=== PATIENT | female | born 1965 | race Caucasian/White ===

== ENCOUNTER 2024-04-20 08:02 | Emergency (ER) | payer OTHER, SELFPAY ==
[2024-04-20 08:06] VITALS: BP 197/105
[2024-04-20] MEDS: TORADOL 15 MG IV (08:31)
[2024-04-20] MEDS: DILAUDID 0.5 MG IV (08:31)
[2024-04-20] MEDS: ZOFRAN 4 MG IV ×2 (08:31→08:57)
[2024-04-20] MEDS: NSS 500 IV (08:38)
[2024-04-20 08:42] VITALS: BMI 36.7
--- NOTE | 2024-04-20 08:42 | ED.GENMED ---
History of Present Illness
General
Chief Complaint: Back Pain
Source: patient
Exam Limitations: none
Time Seen by Provider: 04/20/24 08:19
Nursing documentation reviewed up to this point in time: agreed with
History of Present Illness
History of Present Illness:
Patient presents to secondary to intermittent, but worsening left lower back pain rating to her stomach over the past 2 weeks. This morning, patient has had vomiting episodes secondary to severe pain. Denies fever or chills. Denies trauma.
Denies loss of sensation or weakness. Denies difficulty with ambulation. Denies difficulty with urination. Patient has had history of kidney stones, but is unsure if she has passed her previous kidney stones or her symptoms are similar to what
she had experienced in the past. Denies recent illness.
Past History
Past History
ED Past Medical History: Asthma, GERD (gastritis/hiatel hernia) and Other (Kidney stones)
ED Past Surgical History: Cholecystectomy and Gynecological
Social History
Tobacco: Non-smoker
Alcohol: Occasional
Personal: Single
Living: with family
Review of Systems
Review of Systems
Allergies reviewed?: Yes
All Other Systems: ROS reviewed and negative except as documented in HPI and ROS
Constitutional: Reports no symptoms; Denies fever
Cardiac: Reports no symptoms
ABD/GI: Reports abdominal pain, nausea and vomiting
: Reports flank pain; Denies dysuria, frequency or difficulty voiding
Musculoskeletal: Reports back pain
Skin: Reports no symptoms
Neurological: Reports no symptoms
Phy Exam
Physical Exam
Physical Exam:
Physical Exam
General: no apparent distress, not acutely ill. afebrile.
Head: nc/at. eomi
Neck: supple. no meningeal signs
Heart: s1/s2 regular rate and rhythm, no murmur. equal radial pulses.
Lungs: no acute respiratory distress. clear bilaterally
Abdomen: normal bowel sounds. not tender.
Neuro: alert and oriented. no focal neurological deficits
Skin: no rash
Psychiatric: well kept. interactive and cooperative
Extremities: no edema. no calf tenderness.
Course
Orders/Labs/Results
Orders:
Orders
04/20/24 08:25
CT Abd/pel Without Iv Or Oral Urgent
Comment:
Reason For Exam: left lower/flank pain
0.9% Sodium Chloride 500 ml [Nss] 500 ml IV BOLUS
HYDROmorphone [Dilaudid] 0.5 mg IV NOW STA
Ketorolac [Toradol] 15 mg IV NOW STA
Ondansetron Injectable [Zofran] 4 mg IV NOW STA
04/20/24 08:41
Complete Blood Count/With Diff Urgent
Comprehensive Metabolic Panel Urgent
04/20/24 08:49
Ondansetron Injectable [Zofran] 4 mg IV NOW STA
04/20/24 09:47
Acetaminophen [Tylenol] 1,000 mg PO NOW STA
04/20/24 09:49
Dexamethasone Sod Phosphate [Decadron] 10 mg IV NOW STA
Abnormal Lab Results
04/20/24
08:41
MCH 31.7 H pg
(27.0-31.0)
MCHC 37.2 H g/dL
(33.0-37.0)
MPV 10.5 H fL
(7.4-10.4)
Glucose 132 H mg/dl
(70-99)
AST 44 H U/L
(14-36)
ALT 66 H U/L
(0-35)
Albumin 5.1 H g/dl
(3.5-5.0)
04/20/24 08:41
04/20/24 08:41
Vital Signs
Initial and Last Documented VS:
Initial Vital Signs
Temp Pulse Resp BP Pulse Ox
98.5 F 85 18 197/105 98
04/20/24 08:06 04/20/24 08:06 04/20/24 08:06 04/20/24 08:06 04/20/24 08:06
Last Documented Vital Signs
Temp Pulse Resp BP Pulse Ox
98.5 F 66 20 155/71 99
04/20/24 08:06 04/20/24 10:15 04/20/24 10:15 04/20/24 10:15 04/20/24 10:15
MDM/Problems Addressed
MDM/Problems Addressed:
CT abd/pel: no acute findings.
Patient reports improvement in symptoms after treatment. History and exam, along with blood work and CT scan consistent with likely an acute back pain with spasm. Fortunately, there is no evidence of any exam findings concerning for cauda equina
syndrome at this time. As such, patient will be discharged home with conservative management, along with PCP follow-up as an outpatient, including potential obtaining MRI lumbar spine as an outpatient. Advised to return to ED with worsening
symptoms, i.e. fever/worsening pain/weakness/incontinence.
*Critical Care Note
Total Time (30-74mins, 75-104mins- exclusive of procedures): Not Applicable
ED Attending Note
-
Portions of this chart may have been created with voice recognition software.� Occasional wrong word or��sound alike� substitutions may have occurred due to the inherent limitations of voice recognition software.
Discharge Plan
Departure
Patient Disposition: Home (Routine Discharge)
Date of Disposition: 04/20/24
Time of Disposition: 10:18
Patient with high blood pressure during this ER visit?: Yes
Condition: Good
Discharge Problem:
Back pain
Instructions: Low Back Pain (DC)
Prescriptions:
New
methylprednisolone [Medrol (Raulito)] 4 mg tablets,dose pack
4 mg PO DAILY Qty: 21 0RF
No Action
valsartan 80 MG tablet
80 mg PO DAILY
pantoprazole 40 MG tablet,delayed release (DR/EC)
40 mg PO BID
metoprolol tartrate 50 MG tablet
50 mg PO QPM
sucralfate 1 GM/10 ML suspension
1 gm PO QID Qty: 400 0RF
Rx Instructions:
take one hour befoe meals and at bedtime for 7-10 days
lorazepam 0.5 MG tablet
0.5 mg PO Q4HPRN PRN (Reason: anxiety) Qty: 8 0RF
Referrals:
Jeffry Fernández DO [Family Provider] -
Activity Restrictions/Additional Instructions:
As discussed, please follow-up with your primary care physician for reevaluation, including potential obtaining MRI of spine as an outpatient, if symptoms persist. Please return to ED with worsening symptoms, i.e. fever/worsening
pain/weakness/incontinence. Your prescription has been sent electronically to [facility] pharmacy in [place]
Interventions
Interventions:
*Risk Screen - Suicide Last Done: 04/20/24 08:06
*General Assessment Last Done: 04/20/24 08:06
*Neglect/Abuse Screening Last Done: 04/20/24 08:06
ED- Fall Risk Assessment Last Done: 04/20/24 08:43
*ED COVID-19 Vaccine History Last Done: 04/20/24 08:45
*Nursing Disposition Last Done: 04/20/24 11:00
ED-Musculoskeletal Assessment Last Done: 04/20/24 08:43
Discharge Date and Time
Discharge Date/Time: 04/20/24 11:01
Print Language: LUXEMBOURGER
[2024-04-20 09:05] LABS: % Basophils 0.6 % (0-2); % Eosinophils 5.7 % (0-6); % Immature Granulocytes 0.4 % (0-0.5); % Monocytes 8.1 % (1.7-9.3); % Neutrophils 59.2 % (42.2-75.2); Absolute Eosinophils 0.4 10^3/uL (0-0.7); Absolute Lymphocytes 1.8 10^3/uL (1.2-3.4); Absolute Monocytes 0.6 10^3/uL (0.1-0.6); Absolute Neutrophils 4.2 10^3/uL (1.4-6.5); Hematocrit 39.5 % (37.0-47.0); Hemoglobin 14.7 g/dL (12.0-16.0); Mean Corp Hgb Conc. 37.2 g/dL (33.0-37.0); Mean Corpuscular Hgb 31.7 pg (27.0-31.0); Mean Corpuscular Volume 85.3 fL (81.0-99.0); Mean Platelet Volume 10.5 fL (7.4-10.4); Nucleated Red Blood Cells % 0 %; Platelet Count 279 10^3/uL (130-400); Red Blood Cell Count 4.63 10^6/uL (4.20-5.40); Red Cell Dist. Width 12.3 % (11.5-14.5)
[2024-04-20 09:17] LABS: ALT (SGPT) 66 U/L (0-35); AST (SGOT) 44 U/L (14-36); Albumin 5.1 g/dl (3.5-5.0); Alkaline Phosphatase 111 U/L (38-126); Blood Urea Nitrogen 15 mg/dl (7-17); Calcium 9.4 mg/dl (8.4-10.2); Carbon Dioxide 26 mmol/L (22-30); Chloride 103 mmol/L (98-107); Estimated Creatinine Clearance 103 ml/min; Glucose 132 mg/dl (70-99); Potassium 3.8 mmol/L (3.5-5.1); Sodium 141 mmol/L (135-145); Total Bilirubin 0.7 mg/dl (0.2-1.3); Total Protein 7.5 g/dl (6.3-8.2); eGFR > 60.00
[2024-04-20] MEDS: TYLENOL 1000 MG PO (09:54)
[2024-04-20] MEDS: DECADRON 10 MG IV (09:55)
[2024-04-20 10:15] VITALS: BP 155/71
== END 2024-04-20 11:01 | disposition home or self-care (01) ==
LOC: EMR 08:02
PROVIDERS: EMERGENCY PHYSICIAN Emergency Medicine; FAMILY PHYSICIAN Family Medicine
DX: M54.50 Low back pain, unspecified (principal); J45.909 Unspecified asthma, uncomplicated; K21.9 Gastro-esophageal reflux disease without esophagitis; Z87.19 Personal history of other diseases of the digestive system; Z87.442 Personal history of urinary calculi; Z90.49 Acquired absence of other specified parts of digestive tract
CPT/HCPCS: 99284; 96374; 96375; 96376; 96361; 74176; 80053; 85025

== ENCOUNTER 2024-07-28 14:08 | Observation (INO) | payer OTHER, SELFPAY ==
[2024-07-28] VITALS (13 sets, daily range): BP systolic 98–186; BP diastolic 49–92; BMI 30.1
--- NOTE | 2024-07-28 11:33 | ED.GENMED ---
ED Provider Triage
<Ronny Mckeon PA-C - Last Filed: 07/28/24 11:34>
-
Patient seen by provider in Triage?: Seen in Triage
59-year-old female presents with generalized unwell sensation associated with chest pain that radiates to the neck and down the arm. She notes she is nauseous. She is currently being treated for bronchitis and has had 4 days worth of doxycycline
prednisone and albuterol. No fever.
Vital signs are stable. EKG through triage showed a left bundle branch block. Labs are pending including troponin. Chest x-ray ordered as well
Vital signs are stable through triage. She received a medical screening exam by healthcare provider at triage. She warrants further assessment
History of Present Illness
<Ronny Mckeon PA-C - Last Filed: 07/28/24 11:34>
General
Chief Complaint: Chest Pain
Time Seen by Provider: 07/28/24 11:50
<Gela Conde MD - Last Filed: 07/28/24 12:58>
History of Present Illness
History of Present Illness:
Patient is a 59-year-old woman with history of hypertension presenting to the emergency department chest pain. Patient states that she is currently being treated for bronchitis and does feel slightly better. However this morning around 5 AM she
woke up with left-sided shoulder pain. Throughout the day it radiated up to her jaw down her arm and into the front of her left chest. She does have associated nausea. She does have episodes of lightheadedness dizziness and some diaphoresis.
This is never happened to her before. She does not note any exertional chest pain before. The pain is not worse with any movement. She did have a stress test completed last year which was unremarkable. Her mother did have an AR in her 60s. No
recent travel malignancy hemoptysis or leg swelling. She has not had this pain before.
Past History
<Ronny Mckeon PA-C - Last Filed: 07/28/24 11:34>
Past History
ED Past Medical History: Asthma, GERD (gastritis/hiatel hernia) and Other (Kidney stones)
ED Past Surgical History: Cholecystectomy and Gynecological
Social History
Tobacco: Non-smoker
Alcohol: Occasional
Personal: Single
Living: with family
Phy Exam
<Gela Conde MD - Last Filed: 07/28/24 12:58>
Physical Exam
Physical Exam:
GENERAL: Appears uncomfortable
HEENT: normocephalic, extraocular movements intact, moist oral mucosa
NECK: normal inspection
RESPIRATORY: no respiratory distress, clear to auscultation bilaterally
CARDIOVASCULAR: regular rate and rhythm, 2+ radial pulses bilaterally, no reproducible chest wall tenderness
ABDOMEN/: soft, non-distended, non-tender to palpation, no rebound or guarding
EXTREMITIES: non-tender, no edema/swelling
NEUROLOGIC: awake and alert, moves all extremities
SKIN: warm
Scores
<Gela Conde MD - Last Filed: 07/28/24 12:58>
Heart Score for Chest Pain Patients
STEMI patient?: No
History: Moderately Suspicious
ECG: Nonspecific Repolarization
Age: >45 - <65 years
Risk Factors: 1 or 2 Risk Factors
Troponin: </= Normal Limit
Heart Score for Chest Pain Patients: 4
Heart Score Risk: 20.3% MACE over next 6 weeks
Course
<Ronny Mckeon PA-C - Last Filed: 07/28/24 11:34>
Orders/Labs/Results
Orders:
Orders
07/28/24 11:09
Electrocardiogram (*1) Urgent
Reason for Study: Chest Pain
EKG- Treatment ONCE
07/28/24 11:22
Electrocardiogram (*1) Urgent
Reason for Study: Chest Pain
Other Reason for Exam: Repeat in [address] Conde
07/28/24 11:23
EKG- Treatment ONCE
07/28/24 11:32
CR Chest - 2 Views Urgent
Comment:
Reason For Exam: chest pain, cough
07/28/24 11:59
Aspirin 325 mg PO NOW STA
Ondansetron Orally Disint [Zofran Odt (Orally Disintegrating)] 4 mg PO NOW STA
07/28/24 12:03
Basic Metabolic Panel Urgent
Complete Blood Count/With Diff Urgent
Troponin I Urgent
07/28/24 12:12
Nitroglycerin Sublingual [Nitrostat (Sublingual)] 0.4 mg SL [id number] PRN
07/28/24 12:49
EKG- Treatment ONCE
07/28/24 15:00
Electrocardiogram (*1) Urgent
Reason for Study: Chest Pain
Troponin I Urgent
Abnormal Lab Results
07/28/24
12:03
Abs Immat Gran (auto) 0.1 H 10^3/uL
(0-0.05)
Absolute Neuts (auto) 8.1 H 10^3/uL
(1.4-6.5)
Immature Gran % 0.8 H %
(0-0.5)
Neutrophils % 78.4 H %
(42.2-75.2)
Lymphocytes % 15.0 L %
(20.5-51.1)
BUN 21 H mg/dl
(7-17)
Glucose 125 H mg/dl
(70-99)
07/28/24 12:03
07/28/24 12:03
Vital Signs
Initial and Last Documented VS:
Initial Vital Signs
Temp Pulse Resp BP Pulse Ox
98.3 F 75 18 179/92 99
07/28/24 11:30 07/28/24 11:30 07/28/24 11:30 07/28/24 11:30 07/28/24 11:30
Last Documented Vital Signs
Temp Pulse Resp BP Pulse Ox
98.3 F 73 16 186/88 98
07/28/24 11:30 07/28/24 11:58 07/28/24 11:58 07/28/24 12:00 07/28/24 11:58
<Gela Conde MD - Last Filed: 07/28/24 12:58>
Orders/Labs/Results
Orders:
Orders
07/28/24 11:09
Electrocardiogram (*1) Urgent
Reason for Study: Chest Pain
EKG- Treatment ONCE
07/28/24 11:22
Electrocardiogram (*1) Urgent
Reason for Study: Chest Pain
Other Reason for Exam: Repeat in [address] Conde
07/28/24 11:23
EKG- Treatment ONCE
07/28/24 11:32
CR Chest - 2 Views Urgent
Comment:
Reason For Exam: chest pain, cough
07/28/24 11:59
Aspirin 325 mg PO NOW STA
Ondansetron Orally Disint [Zofran Odt (Orally Disintegrating)] 4 mg PO NOW STA
07/28/24 12:03
Basic Metabolic Panel Urgent
Complete Blood Count/With Diff Urgent
Troponin I Urgent
07/28/24 12:12
Nitroglycerin Sublingual [Nitrostat (Sublingual)] 0.4 mg SL [id number] PRN
07/28/24 12:49
EKG- Treatment ONCE
07/28/24 15:00
Electrocardiogram (*1) Urgent
Reason for Study: Chest Pain
Troponin I Urgent
Abnormal Lab Results
07/28/24
12:03
Abs Immat Gran (auto) 0.1 H 10^3/uL
(0-0.05)
Absolute Neuts (auto) 8.1 H 10^3/uL
(1.4-6.5)
Immature Gran % 0.8 H %
(0-0.5)
Neutrophils % 78.4 H %
(42.2-75.2)
Lymphocytes % 15.0 L %
(20.5-51.1)
BUN 21 H mg/dl
(7-17)
Glucose 125 H mg/dl
(70-99)
07/28/24 12:03
07/28/24 12:03
Vital Signs
Initial and Last Documented VS:
Initial Vital Signs
Temp Pulse Resp BP Pulse Ox
98.3 F 75 18 179/92 99
07/28/24 11:30 07/28/24 11:30 07/28/24 11:30 07/28/24 11:30 07/28/24 11:30
Last Documented Vital Signs
Temp Pulse Resp BP Pulse Ox
98.3 F 73 16 186/88 98
07/28/24 11:30 07/28/24 11:58 07/28/24 11:58 07/28/24 12:00 07/28/24 11:58
<Gela Conde MD - Last Filed: 07/28/24 12:58>
MDM/Problems Addressed
Differential Diagnosis Includes:
Patient is a 59-year-old woman with history of hypertension presenting to the emergency department with chest pain that radiates up her neck and down her arm. Vitals are notable for being hypertensive and exam she is a woman who does appear
uncomfortable. Story is highly suspicious for ACS. Less likely to be PE. History and exam not consistent with dissection. EKG obtained prior to evaluation does show left bundle branch block. I did obtain a repeat EKG which did not show any
significant changes. Chest x-ray per my interpretation with no acute abnormality. Will obtain blood work including troponin. Will discuss with cardiology. Will treat with aspirin Zofran and nitro.
<Gela Conde MD - Last Filed: 07/28/24 12:58>
*Critical Care Note
Total Time (30-74mins, 75-104mins- exclusive of procedures): Not Applicable
<Gela Conde MD - Last Filed: 07/28/24 12:58>
Update Note
Update Note:
On reevaluation patient does state that most of her pain has improved however she still having some residual pain under her left axilla. Will give additional nitro. Discussed with cardiology who will evaluate patient upon admission. Initial
troponin negative. I did order delta troponin. Discussed with hospitalist who accepted patient to their service
ED Attending Note
<Ronny Mckeon PA-C - Last Filed: 07/28/24 11:34>
-
Portions of this chart may have been created with voice recognition software.� Occasional wrong word or��sound alike� substitutions may have occurred due to the inherent limitations of voice recognition software.
Discharge Plan
Departure
Patient Disposition: Admit
Date of Disposition: 07/28/24
Time of Disposition: 12:54
Presentation/result/management discussed w/ accepting MD/DO: Hospitalist
Discharge Problem:
Chest pain
Prescriptions:
No Action
valsartan 80 MG tablet
80 mg PO DAILY
pantoprazole 40 MG tablet,delayed release (DR/EC)
40 mg PO BID
metoprolol tartrate 50 MG tablet
50 mg PO QPM
sucralfate 1 GM/10 ML suspension
1 gm PO QID Qty: 400 0RF
Rx Instructions:
take one hour befoe meals and at bedtime for 7-10 days
lorazepam 0.5 MG tablet
0.5 mg PO Q4HPRN PRN (Reason: anxiety) Qty: 8 0RF
methylprednisolone [Medrol (Raulito)] 4 mg tablets,dose pack
4 mg PO DAILY Qty: 21 0RF
Referrals:
Jeffry Fernández, [Family Provider] -
Interventions
Interventions:
*Risk Screen - Suicide Last Done: 07/28/24 11:30
*General Assessment Last Done: 07/28/24 11:30
*Neglect/Abuse Screening Last Done: 07/28/24 11:30
*ED COVID-19 Vaccine History Last Done: 07/28/24 11:59
ED- Cardiac Assessment Last Done: 07/28/24 12:04
Discharge Date and Time
Print Language: GRENADIAN
[2024-07-28] MEDS: ASPIRIN 325 MG PO (12:13)
[2024-07-28] MEDS: ZOFRAN ODT (ORALLY DISINTEGRATING) 4 MG PO (12:13)
[2024-07-28 12:16] LABS: % Basophils 0.4 % (0-2); % Eosinophils 0.3 % (0-6); % Immature Granulocytes 0.8 % (0-0.5); % Monocytes 5.1 % (1.7-9.3); % Neutrophils 78.4 % (42.2-75.2); Absolute Immature Granulocytes 0.1 10^3/uL (0-0.05); Absolute Lymphocytes 1.6 10^3/uL (1.2-3.4); Absolute Monocytes 0.5 10^3/uL (0.1-0.6); Absolute Neutrophils 8.1 10^3/uL (1.4-6.5); Hematocrit 43.1 % (37.0-47.0); Mean Corp Hgb Conc. 34.8 g/dL (33.0-37.0); Mean Corpuscular Hgb 30.7 pg (27.0-31.0); Mean Corpuscular Volume 88.3 fL (81.0-99.0); Nucleated Red Blood Cells % 0 %; Platelet Count 272 10^3/uL (130-400); Red Blood Cell Count 4.88 10^6/uL (4.20-5.40); Red Cell Dist. Width 12.2 % (11.5-14.5); White Blood Cell Count 10.3 10^3/uL (4.8-10.8)
[2024-07-28 12:32] LABS: Blood Urea Nitrogen 21 mg/dl (7-17); Calcium 9.6 mg/dl (8.4-10.2); Carbon Dioxide 29 mmol/L (22-30); Chloride 101 mmol/L (98-107); Estimated Creatinine Clearance 80 ml/min; Glucose 125 mg/dl (70-99); Sodium 142 mmol/L (135-145); eGFR > 60.00
[2024-07-28 12:38] LABS: Troponin I < 0.012 ng/ml
[2024-07-28] MEDS: NITROSTAT (SUBLINGUAL) 0.4 MG SL (12:58)
--- NOTE | 2024-07-28 13:43 | HPS.HSE ---
Addendum entered and electronically signed by Millicent Montez MD 07/28/24 14:32:
Check D-Dimer.
Original Note:
Family Physician
-
Family Physician: Jeffry Fernández
Chief Complaint
-
chest pain
History of Present Illness
59-year-old female past medical history left bundle branch block, hypertension, seasonal asthma, GERD, hiatal hernia, kidney stones, presenting with chest pain.
Patient developed productive cough and congestion and chest discomfort this past Friday 5 days ago. She was started on prednisone, DuoNeb and doxycycline. Symptoms have improved. 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 This morning she woke up with left-sided posterior shoulder pain which radiated up to her jaw down to her arm in the front of her left chest. She had nausea. She denies
sweating. Denies shortness of breath. Denied headache. Denies symptoms like this before. Denies any symptoms currently.
She had stress test last year which was unremarkable.
Her mother had myocardial infarction in her 60s.
She denies smoking or alcohol use.
Medical History
Past Medical History
Past Medical History: Reports Other (left bundle branch block, hypertension, seasonal asthma, GERD, hiatal hernia, kidney stones)
Past Surgical History: Reports None
Social History
Tobacco: Non-smoker
Alcohol: None
Drug: None
Family History
Family History: Other (Her mother had myocardial infarction in her 60s.)
Allergies / Home Medications
Allergies reflects when Allergies were last updated in [employer].
Home Medications with original date entered in [employer]
Allergy/Medication List:
Allergies
Allergy/AdvReac Type Severity Reaction Status Date / Time
Cephalosporins Allergy Anaphylaxis Verified 07/28/24 11:29
codeine Allergy Nausea Verified 07/28/24 11:29
penicillin V Allergy Anaphylaxis Verified 07/28/24 11:29
Penicillins Allergy Anaphylaxis Verified 07/28/24 11:29
Home Medications
lorazepam 0.5 mg tablet 0.5 mg PO Q4HPRN PRN anxiety #8 tabs 12/14/21
metoprolol tartrate 50 mg tablet 50 mg PO QPM 12/14/21
pantoprazole 40 mg tablet,delayed release 40 mg PO BID 12/14/21
sucralfate 100 mg/mL oral suspension 1 gm PO QID #400 mL 12/14/21
valsartan 80 mg tablet 80 mg PO DAILY 12/14/21
methylprednisolone 4 mg tablets in a dose pack (Medrol (Raulito)) 4 mg PO DAILY #21 ea 04/20/24
Review of Systems
-
History Source: Patient
A 12 point ROS was completed and negative except as noted: Yes
Constitutional: Reports No Symptoms
EENT: Reports No Symptoms
Respiratory: Reports See HPI
Cardiac: Reports See HPI
Abdomen/GI: Reports No Symptoms
: Reports No Symptoms
Musculoskeletal: Reports No Symptoms
Skin: Reports No Symptoms
Neurological: Reports No Symptoms
Endocrine: Reports No Symptoms
Hematologic/Lymphatic: Reports No Symptoms
Psych: Reports No Symptoms
Physical Exam
Vital Signs
Vital Signs
Temp Pulse Resp BP Pulse Ox
98.3 F 75 16 139/60 94
07/28/24 11:30 07/28/24 13:05 07/28/24 11:58 07/28/24 13:03 07/28/24 13:05
Physical Exam
General: Well Developed, Well Nourished and No Apparent Distress
HEENT: NormoCephalic, Moist mucous membranes and Atraumatic
Respiratory: Clear
Cardiac: S1/S2 and Regular Rhythm; No Murmur or Rub
GI: Soft, Non Tender, Non Distended and Normal Bowel Sounds; No Organomegaly
Rectal: Deferred by Provider
Musculoskeletal: No Clubbing, No Cyanosis and No Edema
Skin: No Rash
Neuro: Nonfocal/grossly intact
Laboratory Results
-
07/28/24 12:03
07/28/24 12:03
Laboratory Results
Total Bilirubin Cancelled 07/28/24 12:03
AST Cancelled 07/28/24 12:03
ALT Cancelled 07/28/24 12:03
Alkaline Phosphatase Cancelled 07/28/24 12:03
Troponin I < 0.012 ng/ml 07/28/24 12:03
Data Reviewed
-
Lab Data: Labs Reviewed by me
Old Records: Reviewed
Impression/Plan
-
IMPRESSION:
PLAN:
# Chest pain possibly secondary to bronchitis flareup from fumes inhalation/rule out ACS/anginal episode
-EKG shows normal sinus rhythm, left bundle branch block which is old as per patient
-Troponin negative
-trend troponins
-Aspirin given
-As needed nitroglycerin
-Cardiology consulted
# Acute bronchitis, undergoing treatment
-Lungs clear
-Patient on day 5 of doxycycline and prednisone, supposed to be on 10-day course
Old left bundle branch block
Essential hypertension
-Continue valsartan
-Continue metoprolol
Asthma
GERD/hiatal hernia
-Continue Protonix
History of kidney stones
Anxiety
-Continue lorazepam
Full code
DVT prophylaxis�heparin
Regular diet
--- NOTE | 2024-07-28 14:08 | CON.CAR ---
Consultation
Consultation Request
Date/Time Consultation Requested: 07/28/2024 at about 1300 hrs
Date/Time Consultation Performed: 07/28/2024 at 1345 hrs
Requesting Provider: Dr. Ramesh
Performing Provider: Nacho Hastings MD
Reason for Consultation: Chest pain
Medical History
-
Chief Complaint: Chest pain
History of Present Illness:
Card: Fred Tracy DO ([facility])
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
left posterior shoulder discomfort that radiated down the left arm around the left neck and settled in the left upper anterior chest. It persisted until about 1 PM today. It finally resolved with treatment in the emergency room. She had
associated dyspnea and nausea but no diaphoresis.
2 EKGs have shown stable left bundle branch block. Initial troponin is normal. She is being admitted to the hospital service for further evaluation and management.
Past Medical History
Past Medical History: Arrhythmias (LBBB), Asthma (mild seasonal), GERD, HTN and Hypercholesterolemia
Past Surgical History: Cholecystectomy, Gynecological (partial hysterectomy) and Other (rotator cuff, right)
Social History
Tobacco: Non-Smoker
Drug: None
Personal:
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
Family History
Family History: Early CAD (mother with CAD in her early 60s, she had a pacemaker. ) and Other (father had broken heart syndrome after the of his , he had a pacemaker)
Allergies / Home Medications
Allergy/AdvReac Type Severity Reaction Status Date / Time
Cephalosporins Allergy Anaphylaxis Verified 07/28/24 11:29
codeine Allergy Nausea Verified 07/28/24 11:29
penicillin V Allergy Anaphylaxis Verified 07/28/24 11:29
Penicillins Allergy Anaphylaxis Verified 07/28/24 11:29
�Medication �Instructions �Recorded �Confirmed �Type
albuterol sulfate 90 mcg/actuation 2 puff inhalation R Q6HPRN PRN sob 07/28/24 07/28/24 History
aerosol inhaler
doxycycline hyclate 100 mg capsule 100 mg PO BID 07/28/24 07/28/24 History
metoprolol succinate 50 mg 50 mg PO HS 07/28/24 07/28/24 History
tablet,extended release 24 hr
omeprazole 20 mg capsule,delayed 20 mg PO DAILY 07/28/24 07/28/24 History
release
prednisone 20 mg tablet 20 mg PO BID 07/28/24 07/28/24 History
rosuvastatin 5 mg tablet 5 mg PO DAILY 07/28/24 07/28/24 History
valsartan 320 1 tab PO DAILY 07/28/24 07/28/24 History
mg-hydrochlorothiazide 12.5 mg
tablet
Review of Systems
-
History Source: Patient
Respiratory: Trouble Breathing
Cardiac: Chest Pain
Physical Exam
Vital Signs
Temp Pulse Resp BP Pulse Ox
98.3 F 75 16 139/60 94
07/28/24 11:30 07/28/24 13:05 07/28/24 11:58 07/28/24 13:03 07/28/24 13:05
Lab Results
07/28/24 12:03
07/28/24 12:03
Troponin I < 0.012 ng/ml 07/28/24 12:03
Physical Exam
General: Well Developed and Well Nourished
HEENT: Normocephalic
Respiratory: Clear and Non Labored Respirations
Cardiac: S1/S2, Regular Rhythm and Other (no murmur)
GI: Soft and Non Tender
Musculoskeletal: No Clubbing
Skin: Warm and Dry
Neuro: AO x 3
Hematologic/Lymphatic: No Lymphadenopathy
Psych: Calm
Impression / Plan
-
New Chest Pain, long duration, multiple risk factors for CAD
- Agree with plans to rule out W[place]
- If rules out then an echo and stress test make sense
- If rules in for [place] then will progress to coronary angiography/revascularization if indicated
HTN, stable, controlled
Mixed hyperlipidemia, on low dose statin, stable, goal LDL (if no CAD found) is less than 100
Mild seasonal asthma, tolerating beta janeth, uses albuterol occasionally
Chronic LBBB, old, no syncope/heart failure. 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
GERD, stable, controlled on PPI
BMI about 30
80 min spent caring for patient today
Data Reviewed
-
EKG: Tracing Personally Visualized and interpreted (sinus lbbb, 2 tracing, no change)
Radiology: Image Personally Visualized and interpreted (no heart failure, no acute disease)
[2024-07-28 16:05] LABS: D-Dimer < 0.27 ug/mlFEU (0.00-0.50)
[2024-07-28 16:11] LABS: Troponin I < 0.012 ng/ml
--- NOTE | 2024-07-28 18:22 | PTCARENOTE ---
Received patient to unit awake alert and oriented . No chest pain since arrival . Will be NPO for breakfast in am for stress test. Oriented to room , able to make needs known. Having dinner at present.
[2024-07-28 19:17] LABS: Troponin I < 0.012 ng/ml
[2024-07-28] MEDS: VIBRAMYCIN 100 MG PO (20:24)
[2024-07-28] MEDS: DELTASONE 20 MG PO (20:24)
[2024-07-28] MEDS: HEPARIN 5000 UNITS SC (20:24)
[2024-07-28] MEDS: ROBITUSSIN 200 MG PO (20:24)
[2024-07-28] MEDS: TOPROL XL 50 MG PO (22:30)
[2024-07-29 01:20] LABS: Troponin I < 0.012 ng/ml
[2024-07-29 03:33] VITALS: BP 137/83
[2024-07-29] MEDS: VIBRAMYCIN 100 MG PO (08:00)
[2024-07-29] MEDS: CRESTOR 5 MG PO (08:01)
[2024-07-29] MEDS: ORETIC 12.5 MG PO (08:02)
[2024-07-29] MEDS: PROTONIX 40 MG PO (08:02)
[2024-07-29] MEDS: DIOVAN 320 MG PO (08:02)
[2024-07-29] MEDS: DELTASONE 20 MG PO (08:04)
[2024-07-29 08:53] VITALS: BP 162/91
[2024-07-29] MEDS: LEXISCAN 0.4 MG IV (09:46)
[2024-07-29] MEDS: AMINOPHYLLINE 75 MG IV (10:08)
--- NOTE | 2024-07-29 10:41 | W.PN.CD ---
Addendum entered and electronically signed by Luis John MD 07/29/24 13:51:
59 yo female with PMH of LBBB admitted with chest pain with both typical and atypical features. Currently chest pain free. Exam with RRR, no murmurs, no edema.
Work up for ACS was negative. We then proceeded to Lexiscan nuclear stress: normal study, no ischemia.
She is stable from cardiac perspective for outpatient follow up with her final inspector.
Original Note:
Today's Communication / Plan
-
Stress test today
Impression / Plan
-
59-year-old woman with a chronic left bundle branch block, seasonal mild asthma, hypertension, mixed hyperlipidemia, and GERD who presented for evaluation of shoulder/arm/neck/chest pain with associated dyspnea and nausea, but no diaphoresis. Trops
normal, EKG stable.
Chest pain:
-had some chest pressure last night before bed, but was gone when she woke up this AM. CP free now.
-Trops normal, EKG with chronic LBBB
-Echo 07/28/24: Normal biventricular size and systolic function without regional wall motion abnormality. LVEF 60-65%. Moderate concentric LV hypertrophy. No significant valvular disease.
-stress test today
HTN:
-elevated at times here
-continue meds (HCTZ/ARB/BB) and monitor
-may need medicine adjustments- will need to be monitored closely as OP
Mixed hyperlipidemia, on low dose statin, stable, goal LDL (if no CAD found) is less than 100
Mild seasonal asthma, tolerating beta janeth, uses albuterol occasionally
Chronic LBBB, old, no syncope/heart failure. She says her final inspector has done testing about 2 yrs ago with good results
GERD, stable, controlled on PPI
BMI about 30:
-will benefit from diet, exercise, weight loss over time
Physical Exam
Vital Signs/Labs
Vital Signs
Temp Pulse Resp BP Pulse Ox
98.0 F 64 18 162/91 94
07/29/24 08:53 07/29/24 08:53 07/29/24 08:53 07/29/24 08:53 07/29/24 08:53
07/28/24 07/29/24 07/30/24
06:59 06:59 06:59
Actual Weight 82 kg
LAB Results
07/28/24 07/28/24 07/28/24
12:03 15:37 18:44
Troponin I < 0.012 < 0.012 < 0.012
07/29/24
00:48
Troponin I < 0.012
Physical Exam
Constitutional: No acute distress
EENT: Anicteric
Cardiovascular: Rhythm & rate is regular
Respiratory: Respiratory effort normal and Lungs clear to auscul.
Neuro/Psych: AO x 3
Data Reviewed
-
Date of Service: July 29, 2024
EKG: Other (SR tele)
[2024-07-29 11:00] VITALS: BP 180/87
--- NOTE | 2024-07-29 11:43 | PTCARENOTE ---
Pt tolerated Lexiscan Stress test well, report given to Estephanie on [facility]. Refer to Cardiac Services Monitoring Record for complete details and assessment. No change in assessment.
--- NOTE | 2024-07-29 13:24 | W.PN.HOSP.TC ---
Addendum entered and electronically signed by Edgar Ochoa MD 07/29/24 16:32:
[id number]
Addendum entered and electronically signed by Edgar Ochoa MD 07/29/24 15:33:
#Leukocytosis
� Most likely reactive, steroids
� Follow-up CBC outpatient
� No evidence of infection, afebrile
Original Note:
Today's Communication/Plan
-
f/u cards outpatient with hypertension management
f/u pcp outpt
Assessment / Plan
Assessment / Plan
Constitutional: No acute distress
EENT: Anicteric
Cardiovascular: Rhythm & rate is regular
Respiratory: Respiratory effort normal and Lungs CTAB
Neuro/Psych: AO x 3
# Chest pain
-most likely pleuritic with bronchitis v less likely ACS
-Stress test negative
-Echo 07/28/24: Normal biventricular size and systolic function without regional wall motion abnormality. LVEF 60-65%. Moderate concentric LV hypertrophy. No significant valvular disease.
-F/u cardiology outpt
# Acute bronchitis, undergoing treatment
-Lungs clear
-Patient on day 5 of doxycycline and prednisone, supposed to be on 10-day course
Old left bundle branch block
Essential hypertension
-Continue valsartan
-Continue metoprolol
-most likely will need adjustment outpt- f/u cards outpatient
Asthma
GERD/hiatal hernia
-Continue Protonix
History of kidney stones
Anxiety
-Continue lorazepam
Full code
DVT prophylaxis�heparin
Regular diet
More than 30 minutes spent in discharge including
Final examination of the patient
Summarizing hospital stay
Instructions for continuing care to all relevant caregivers
Preparation of discharge records, prescriptions, and referral forms
Total time spent (35 in minutes):
Anticipated Discharge: Today
Subjective/Interval History
-
Date of Service: July 29, 2024
no acute events; stress test neg
Objective Data
-
Vital Signs:
Vital Signs
Temp Pulse Resp BP Pulse Ox
98.0 F 63 18 180/87 95
07/29/24 11:00 07/29/24 11:00 07/29/24 11:00 07/29/24 11:00 07/29/24 11:00
I&O
07/28/24 07/29/24 07/30/24
06:59 06:59 06:59
Intake Total 720 / 720
Balance 720 / 720
Review of Systems
-
History Source: Patient
All other systems: Not reviewed unless documented
Data Reviewed
-
Diagnostic Radiology: Report Reviewed by me
Medical Tests (Nuc Med, Echo etc): Report Reviewed by me
Labs: Labs Reviewed by me
--- NOTE | 2024-07-29 13:34 | W.DS.TRANS ---
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
-
Discharge Instructions:
Discharge Diagnosis/Procedures Chest pain
Diet Low Fat,Low Cholesterol
Activity As tolerated
Instructions:
Stand-Alone Forms:
Changes to Home Medications: No
Discharge Medications:
DC Medications w/original date entered in [employer]
albuterol sulfate 90 mcg/actuation aerosol inhaler 2 puff inhalation R Q6HPRN PRN sob 07/28/24
doxycycline hyclate 100 mg capsule 100 mg PO BID infection 07/28/24
metoprolol succinate 50 mg tablet,extended release 24 hr 50 mg PO HS Blood Pressure 07/28/24
omeprazole 20 mg capsule,delayed release 20 mg PO DAILY Gastrointestinal Issue 07/28/24
prednisone 20 mg tablet 20 mg PO BID Anti-Inflammatory 07/28/24
rosuvastatin 5 mg tablet 5 mg PO DAILY High Cholesterol 07/28/24
valsartan 320 mg-hydrochlorothiazide 12.5 mg tablet 1 tab PO DAILY Blood Pressure 07/28/24
Home Medication Changes
na
Pending Results: No
[2024-07-29 13:49] LABS: % Basophils 0.3 % (0-2); % Eosinophils 0.1 % (0-6); % Immature Granulocytes 0.9 % (0-0.5); % Lymphocytes 11.5 % (20.5-51.1); % Monocytes 5.3 % (1.7-9.3); % Neutrophils 81.9 % (42.2-75.2); Absolute Immature Granulocytes 0.1 10^3/uL (0-0.05); Absolute Lymphocytes 1.5 10^3/uL (1.2-3.4); Absolute Monocytes 0.7 10^3/uL (0.1-0.6); Absolute Neutrophils 10.4 10^3/uL (1.4-6.5); Hematocrit 44.3 % (37.0-47.0); Hemoglobin 15.8 g/dL (12.0-16.0); Mean Corp Hgb Conc. 35.7 g/dL (33.0-37.0); Mean Corpuscular Hgb 31.3 pg (27.0-31.0); Mean Corpuscular Volume 87.7 fL (81.0-99.0); Mean Platelet Volume 10.2 fL (7.4-10.4); Nucleated Red Blood Cells % 0 %; Platelet Count 313 10^3/uL (130-400); Red Blood Cell Count 5.05 10^6/uL (4.20-5.40); White Blood Cell Count 12.7 10^3/uL (4.8-10.8)
[2024-07-29 14:05] LABS: ALT (SGPT) 52 U/L (0-35); AST (SGOT) 23 U/L (14-36); Albumin 4.9 g/dl (3.5-5.0); Alkaline Phosphatase 101 U/L (38-126); Blood Urea Nitrogen 18 mg/dl (7-17); Calcium 9.6 mg/dl (8.4-10.2); Carbon Dioxide 28 mmol/L (22-30); Chloride 100 mmol/L (98-107); Estimated Creatinine Clearance 80 ml/min; Glucose 136 mg/dl (70-99); Potassium 3.5 mmol/L (3.5-5.1); Sodium 141 mmol/L (135-145); Total Bilirubin 0.6 mg/dl (0.2-1.3); Total Protein 7.7 g/dl (6.3-8.2); eGFR > 60.00
[2024-07-29 14:15] LABS: Troponin I < 0.012 ng/ml
--- NOTE | 2024-07-29 14:47 | CM ---
global manager reviewed patient's chart and patient was admitted under OBS, OBS letter signed and placed on chart. Patient lives with her father in a 2 story home, patient is independent with adl's and ambulation, no dme, patient drives.
PCP: Jeffry Fernández
Pharmacy: [facility] in [place].
Plan; Home today no needs.
[2024-07-29] MEDS: HEPARIN SC (14:57)
[2024-07-29 15:50] VITALS: BP 174/70
[2024-07-29 16:06] VITALS: BP 162/82
== END 2024-07-29 16:24 | disposition home or self-care (01) ==
LOC: 4 WEST ACU 14:08
PROVIDERS: Physician Assistant; ADMITTING PHYSICIAN Hospitalist; ATTENDING PHYSICIAN Internal Medicine; CONSULT PHYSICIAN Internal Medicine Cardiovascular Disease; EMERGENCY PHYSICIAN Student in an Organized Health Care Education/Training Program; FAMILY PHYSICIAN Family Medicine
DX: R07.9 Chest pain, unspecified (principal); I11.9 Hypertensive heart disease without heart failure; R11.0 Nausea; R42 Dizziness and giddiness; R61 Generalized hyperhidrosis; J45.909 Unspecified asthma, uncomplicated; J20.9 Acute bronchitis, unspecified; F41.9 Anxiety disorder, unspecified; E78.2 Mixed hyperlipidemia; I25.10 Atherosclerotic heart disease of native coronary artery without angina pectoris; R51.9 Headache, unspecified; D72.829 Elevated white blood cell count, unspecified; M25.512 Pain in left shoulder; I44.7 Left bundle-branch block, unspecified; K44.9 Diaphragmatic hernia without obstruction or gangrene; K21.9 Gastro-esophageal reflux disease without esophagitis; Z87.442 Personal history of urinary calculi; Z87.19 Personal history of other diseases of the digestive system; Z90.49 Acquired absence of other specified parts of digestive tract; Z82.49 Family history of ischemic heart disease and other diseases of the circulatory system; Z88.1 Allergy status to other antibiotic agents; Z88.5 Allergy status to narcotic agent; Z88.0 Allergy status to penicillin
CPT/HCPCS: 71046; 78452; 80048; 80053; 84484; 85025; 85379; 93005; 93017; 93306; 99284; A9500; G0378; J2785

== ENCOUNTER 2025-07-02 10:31 | Emergency (ER) | payer OTHER, SELFPAY ==
[2025-07-02 10:37] VITALS: BP 158/86
--- NOTE | 2025-07-02 11:40 | ED.GENMED ---
History of Present Illness
General
Chief Complaint: Breathing Problem
Source: patient
Time Seen by Provider: 07/02/25 11:15
History of Present Illness
History of Present Illness:
This patient is a 6-year-old female presents emergency department after having her esophagus 'stretched' in an outpatient facility approximate weeks ago. She has had this done 3-4 times in the past due to a history of esophageal stenosis.
Typically, within a few days of the procedure she feels better. Her typical symptoms with esophageal stenosis is that when she eats or she will feel like the food is 'sitting' in the lower chest area which 'restricts my breathing'. Since the
procedure, patient states that the symptoms have not improved which is very concerning to her. She is able to tolerate eating and drinking and had coffee and eggs this morning. She denies vomiting but does have waves of nausea. However, she
states that she just does not feel. She says sometimes she feels like she cannot take a deep breath. She denies fever, chills, cough, sore throat, pain with swallowing, abdominal or back pain. Her bowel movements are normal. She does have
overall fatigue for the last 24 hours associated with a mild gradual onset headache in the posterior occipital area associated with lightheadedness. She denies palpitations, chest pain, or other complaints.
Past History
Past History
ED Past Medical History: Asthma, GERD (gastritis/hiatel hernia), HTN, Hypercholesterolemia and Other (Kidney stones, esophageal stenosis)
ED Past Surgical History: Cholecystectomy and Gynecological
Social History
Tobacco: Non-smoker
Alcohol: Occasional
Drug: None
Personal: Single
Living: with family
Phy Exam
Physical Exam
Physical Exam:
GENERAL: Alert , in no apparent distress
EYE: pupils equal and reactive
NECK: Supple, no significant adenopathy.
ENT: o/p clr, mmm, no stridor, no drool, no trismus, voice clear, no swelling noted.
CARDIAC: Regular rate and rhythm .
LUNGS: Clear breath sounds bilaterally, no acute respiratory distress, no wheezes/rales/rhonchi
ABDOMEN: Soft, without focal tenderness, no r/g, no cvat
NEUROLOGICAL: Alert and oriented, no focal neuro deficits
SKIN: Warm and dry, skin intact.
MUSCULOSKELETAL: No edema, well perfused.
PSYCH: Normal and appropriate interaction.
Course
Orders/Labs/Results
Orders:
Orders
07/02/25 11:05
EKG [Electrocardiogram (*1)] Urgent
Reason for Study: Shortness of Breath
EKG- Treatment ONCE
07/02/25 11:39
CT Chest PE Study Urgent
Comment:
Reason For Exam: recent procedure, sob
Cardiac Monitoring- Treatment ONCE
07/02/25 12:05
COVID-19 Antigen Urgent
Source: Nasal Swab
Complete Blood Count/No Diff Urgent
Comprehensive Metabolic Panel Urgent
Troponin I Urgent
Influenza A+B Rapid Molecular Urgent
IBAN Source: Nasal Swab
Specimen Description:
07/02/25 12:10
Ondansetron Injectable [Zofran] 4 mg IV NOW STA
Abnormal Lab Results
07/02/25
12:05
MPV 10.7 H fL
(7.4-10.4)
Potassium 3.4 L mmol/L
(3.5-5.1)
Carbon Dioxide 31 H mmol/L
(22-30)
BUN 18 H mg/dl
(7-17)
ALT 49 H U/L
(0-35)
07/02/25 12:05
07/02/25 12:05
Vital Signs
Initial and Last Documented VS:
Initial Vital Signs
Temp Pulse Resp BP Pulse Ox
98.2 F 86 16 158/86 97
07/02/25 10:37 07/02/25 10:37 07/02/25 10:37 07/02/25 10:37 07/02/25 10:37
Last Documented Vital Signs
Temp Pulse Resp BP Pulse Ox
98.5 F 82 16 131/85 98
07/02/25 12:14 07/02/25 12:14 07/02/25 12:14 07/02/25 12:14 07/02/25 12:14
*Pulse Oximetry
SaO2: 97
Oxygen Mode of Delivery: Room air
Update Note
Update Note:
Patient presents to the Emergency Department with shortness of breath, lightheadedness, headache
Number and Complexity of Problems Addressed at the Encounter
� Chronic conditions affecting care:
� Acute Exacerbation and/or Progression of Chronic Illness:
� Differential Diagnosis includes: But not limited to incomplete resolution of esophageal stenosis, anxiety, PE, dehydration, electrolyte abnormality, influenza, COVID, etc. etc.
Amount and/or Complexity of Data to be Reviewed and Analyzed
� I performed an independent evaluation of and my interpretation is:
EKG: Read by me, normal sinus rhythm, left bundle branch block, no acute ischemia
CT:No acute disease of the chest. No pulmonary embolism
Hypodense hepatic lesion likely a cyst or hemangioma. Stable
If the patient has emphysema, patient should be assessed for an annual low dose lung cancer CT program, as pulmonary emphysema is an independent risk factor for lung cancer.
Xrays:
Laboratory Studies:Generally unremarkable
Other:
� Review of other/old records reveals:
� Clinical information was obtained by an independent historian:
� Prescriptions/Medications Considered but not given:
� Further testing considered but not performed:
Risk of Complications and/or Morbidity or Mortality of Patient Management
� Social determinants of health affecting care:
� Discussion with other providers (PCP, Hospitalists, Consultants, etc):
� Escalation of care including admission/observation vs risk of discharge considered:2:17 PM patient remains well-appearing, pulse ox 100%, no chest pain. Workup generally unremarkable here. Suspect symptoms may be related to
unsuccessful esophageal dilation. Patient is tolerating p.o. without vomiting, bleeding, etc. Discussed with her importance of follow-up including her CT report and reasons to return to the ER.
ED Attending Note
-
Portions of this chart may have been created with voice recognition software.� Occasional wrong word or��sound alike� substitutions may have occurred due to the inherent limitations of voice recognition software.
Discharge Plan
Departure
Patient Disposition: Home (Routine Discharge)
Date of Disposition: 07/02/25
Time of Disposition: 14:14
Patient with high blood pressure during this ER visit?: Yes
Condition: Good
Discharge Problem:
Dyspnea
Instructions: Shortness of Breath (Dyspnea) (DC), BLOOD PRESSURE
Prescriptions:
No Action
metoprolol succinate 50 mg Tablet Extended Release 24 Hr
50 mg PO HS
omeprazole 20 mg Capsule,Delayed Release(Dr/Ec)
20 mg PO DAILY
albuterol sulfate 90 mcg/actuation Hfa Aerosol Inhaler
2 puff INHALATION R Q6HPRN PRN (Reason: sob)
rosuvastatin 5 mg Tablet
5 mg PO DAILY
valsartan-hydrochlorothiazide 320-12.5 mg Tablet
1 tab PO DAILY
Referrals:
UNKNOWN - PT NOT,INTERVIEWE [Family Provider]
Activity Restrictions/Additional Instructions:
PLEASE SEE YOUR DOCTOR IN FOLLOW UPTHIS WEEK. IF YOU DEVELOP FEVER, VOMITING, CHEST PAIN, PERSISTENT/WORSENING TROUBLE BREATHING, ABDOMINAL PAIN, GET WORSE, DO NOT GET BETTER, OR OTHER WORRISOME SIGNS, GO TO THE ER IMMEDIATELY! PLEASE BRING YOUR
CAT SCAN REPORT TO YOUR DOCTOR.
Interventions
Interventions:
*Risk Screen - Suicide Last Done: 07/02/25 10:37
*General Assessment Last Done: 07/02/25 12:14
*Neglect/Abuse Screening Last Done: 07/02/25 10:37
*ED- Fall Risk Assessment Last Done: 07/02/25 12:14
*ED COVID-19 Vaccine History Last Done: 07/02/25 12:14
*ED Influenza Vaccine History Last Done: 07/02/25 12:14
ED- Cardiac Assessment Last Done: 07/02/25 12:14
ED- Pulmonary Assessment Last Done: 07/02/25 12:14
Discharge Date and Time
Print Language: [place]
[2025-07-02 12:10] VITALS: BP 163/77
[2025-07-02 12:14] VITALS: BP 131/85; BMI 30.5
[2025-07-02] MEDS: ZOFRAN 4 MG IV (12:16)
[2025-07-02 12:34] LABS: COVID-19 Antigen Negative (Negative)
[2025-07-02 12:36] LABS: ALT (SGPT) 49 U/L (0-35); AST (SGOT) 29 U/L (14-36); Albumin 4.6 g/dl (3.5-5.0); Alkaline Phosphatase 100 U/L (38-126); Blood Urea Nitrogen 18 mg/dl (7-17); Calcium 9.5 mg/dl (8.4-10.2); Carbon Dioxide 31 mmol/L (22-30); Chloride 102 mmol/L (98-107); Estimated Creatinine Clearance 80 ml/min; Glucose 95 mg/dl (70-99); Potassium 3.4 mmol/L (3.5-5.1); Sodium 138 mmol/L (135-145); Total Protein 7.3 g/dl (6.3-8.2); eGFR > 60.00
[2025-07-02 12:43] LABS: Hematocrit 38.4 % (37.0-47.0); Hemoglobin 13.4 g/dL (12.0-16.0); Mean Corp Hgb Conc. 34.9 g/dL (33.0-37.0); Mean Corpuscular Volume 88.3 fL (81.0-99.0); Platelet Count 240 10^3/uL (130-400); Red Cell Dist. Width 12.0 % (11.5-14.5)
[2025-07-02 12:47] LABS: Troponin I < 0.012 ng/ml
[2025-07-02 14:27] VITALS: BP 136/81
== END 2025-07-02 14:31 | disposition home or self-care (01) ==
LOC: EMR 10:31
PROVIDERS: EMERGENCY PHYSICIAN Emergency Medicine
DX: R06.00 Dyspnea, unspecified (principal); I10 Essential (primary) hypertension; E78.00 Pure hypercholesterolemia, unspecified; J45.909 Unspecified asthma, uncomplicated; Z90.49 Acquired absence of other specified parts of digestive tract; Z87.19 Personal history of other diseases of the digestive system; Z11.52 Encounter for screening for COVID-19
CPT/HCPCS: 96374; 99284; 71275; 80053; 84484; 85027; 87502; 87811; 93005; Q9967